=== PATIENT | female | born 1965 | race Asian ===

== ENCOUNTER 2018-03-28 21:20 | Emergency (ER) | payer OTHER ==
[~2018-03-28] VITALS: Ht 162.6 cm; Wt 57.1 kg
[2018-03-28] MEDS ORDERED: KEFLEX500 M1 PO (22:02)
[2018-03-28 22:14] VITALS: BP 123/64
== END 2018-03-28 22:14 | disposition home or self-care (01) ==
LOC: M.ERS 21:20
DX: S61.012A Laceration without foreign body of left thumb without damage to nail, initial encounter (principal); W26.0XXA Contact with knife, initial encounter; Y93.89 Activity, other specified; Y92.89 Other specified places as the place of occurrence of the external cause; Y99.8 Other external cause status